=== PATIENT | female | born 1955 | race Caucasian/White ===

== ENCOUNTER 2022-04-30 21:10 | Inpatient (IN) | payer MEDICARE ==
[~2022-04-30] VITALS: Ht 172.7 cm; Wt 84.1 kg
[~2022-04-30 21:10] MED LIST: NO HOME MEDICATIONS; PHENERGAN 25 TA25 MG PO
[2022-04-30 22:48] LABS: BASO % 0.2 % (0.0-2.0); EOS % 0.2 % (0.0-4.0); GRAN # 10.8 K/mm3 (1.4-6.5); GRAN % 85.7 % (42.2-75.2); HEMATOCRIT 42.5 % (37.0-47.0); HEMOGLOBIN 14.2 g/dl (12.5-16.0); LYMPH # 1.2 K/mm3 (1.2-3.4); LYMPH % 9.6 % (20.0-51.0); MEAN CELL VOLUME 91 fl (80.0-100.0); MEAN CORPUSCULAR HEMOGLOBIN 30 pg (27-31); MEAN CORPUSCULAR HGB CONC 33 g/dl (33.0-37.0); MEAN PLATELET VOLUME 10.8 fl (7.4-10.4); MONO # 0.5 K/mm3 (0.1-0.6); PLATELET COUNT 248 K/mm3 (130-400); RED BLOOD COUNT 4.67 M/mm3 (4.10-5.30); REDCELL DISTRIBUTION WIDTH-CV 13.2 % (11.5-14.5)
[2022-04-30 22:59] LABS: INR 1.1 (0.8-3.0); PROTHROMBIN TIME 12.8 SECONDS (9.7-12.8)
[2022-04-30 23:02] LABS: PARTIAL THROMBOPLASTIN TIME 34.1 SECONDS (26.0-37.0)
[2022-04-30 23:03] LABS: ALANINE AMINOTRANSFERASE 27 U/L (0-55); ALBUMIN 3.8 gm/dL (3.4-4.8); ALKALINE PHOSPHATASE 165 U/L (40-150); ANION GAP 9 mmol/L (7-16); AST,SGOT 44 U/L (5-34); BILIRUBIN,TOTAL 0.4 mg/dL (0.2-1.2); BLOOD UREA NITROGEN 13 mg/dL (10-20); CALCIUM 9.4 mg/dL (8.4-10.2); CARBON DIOXIDE 27 mmol/L (23-31); CHLORIDE 102 mmol/L (98-107); CREATININE, serum 0.71 mg/dL (0.57-1.11); GLUCOSE 126 mg/dL (70-99); LIPASE 13 U/L (8-78); POTASSIUM 3.8 mmol/L (3.5-4.5); SODIUM 138 mmol/L (136-145)
[2022-04-30 23:04] LABS: ALCOHOL(ethanol),MEDICAL < 10 mg/dL (0-10)
[2022-04-30 23:52] LABS: COLLECTION METHOD CATHETER
[2022-04-30 23:59] LABS: URINE APPEARANCE Clear (CLEAR/HAZY); URINE BLOOD Negative (NEGATIVE); URINE COLOR Yellow (YELLOW); URINE GLUCOSE Negative (NEGATIVE); URINE KETONE TRACE (NEGATIVE); URINE NITRATE Negative (NEGATIVE); URINE PROTEIN(semi-quant) Negative (NEGATIVE); URINE UROBILINOGEN 0.2 E.U/dL (0.2-1.0)
[2022-05-01] VITALS (10 sets, daily range): BP systolic 109–170; BP diastolic 46–83; PULSE 80–88; TEMP 97.7–977
[2022-05-01 00:05] LABS: SQUAMOUS EPITHELIAL None Seen /hpf (0-10); URINE BACTERIA None Seen /hpf (NONE SEEN); URINE RBC 0-2 /hpf (0-2); URINE WBC 0-2 /hpf (0-2)
[2022-05-01 00:45] LABS: TRICYCLIC ANTIDEPRESS URINE NEGATIVE
--- NOTE | 2022-05-01 03:47 | NUR ---
RECEIVED REPORT FROM Michael RN, CHRIST. WAITING FOR PATIENT ARRIVAL TO ROOM FROM Michael
--- NOTE | 2022-05-01 04:29 | NUR ---
PATENT ARRIVED TO ROOM, PER E.D. CART WITH PCT TRANSPORTING PATIENT, PATIENT TRANSFERED TO WITH TRANSFER BOARD WITH PATIENT REPORTING PAIN WITH MOVEMENT. REPORTS UNABLE TO AFFORD MEDS DUE TO PAYING RENT THERE CLAIMS TAKES NO HOME MEDS ON A REGULAR BASIS. MICHAELS TO DD, DRAINING CLEAR YELLOW URINE. OBSERVED RLE SHORTENED AND EXTERNALLY ROTATED. ON ROOM AIR
--- NOTE | 2022-05-01 04:32 | NUR ---
REPORTS "DOWN TO SMOKING 2 CIGARS PER DAY DOWN FROM 2 PPD".
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
[2022-05-01 07:10] LABS: BASO % 0.3 % (0.0-2.0); EOS % 0.1 % (0.0-4.0); GRAN # 9.4 K/mm3 (1.4-6.5); GRAN % 80.7 % (42.2-75.2); HEMATOCRIT 41.5 % (37.0-47.0); HEMOGLOBIN 13.6 g/dl (12.5-16.0); LYMPH # 1.4 K/mm3 (1.2-3.4); LYMPH % 12.2 % (20.0-51.0); MEAN CELL VOLUME 92 fl (80.0-100.0); MEAN CORPUSCULAR HEMOGLOBIN 30 pg (27-31); MEAN CORPUSCULAR HGB CONC 33 g/dl (33.0-37.0); MEAN PLATELET VOLUME 12.1 fl (7.4-10.4); MONO # 0.7 K/mm3 (0.1-0.6); MONO % 6.4 % (1.7-9.3); PLATELET COUNT 256 K/mm3 (130-400); RED BLOOD COUNT 4.49 M/mm3 (4.10-5.30)
--- NOTE | 2022-05-01 07:11 | NUR ---
CHANGE OF SHIFT REPORT GIVEN TO DAY SHIFT RNWENDY
[2022-05-01 07:33] LABS: CALCIUM 9.1 mg/dL (8.4-10.2); CREATININE, serum 0.63 mg/dL (0.57-1.11); POTASSIUM 4.1 mmol/L (3.5-4.5)
--- NOTE | 2022-05-01 10:34 | NUR ---
Initial visit; Patient thanked Laura for looking in on her. She states God doesn't give us more than we can handle and she will be ok. Supervisor Nurse will keep Nicky in her prayers.
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
[2022-05-02] VITALS: BP 135/55; PULSE 75; TEMP 98.2
[2022-05-02 04:14] VITALS: BP 134/72; PULSE 88; TEMP 98.5
[2022-05-02 07:00] LABS: BASO % 0.2 % (0.0-2.0); GRAN # 10.2 K/mm3 (1.4-6.5); GRAN % 83.8 % (42.2-75.2); HEMOGLOBIN 12.4 g/dl (12.5-16.0); LYMPH # 1.2 K/mm3 (1.2-3.4); LYMPH % 9.6 % (20.0-51.0); MEAN CELL VOLUME 90 fl (80.0-100.0); MEAN CORPUSCULAR HEMOGLOBIN 30 pg (27-31); MEAN CORPUSCULAR HGB CONC 34 g/dl (33.0-37.0); MEAN PLATELET VOLUME 11.7 fl (7.4-10.4); MONO # 0.7 K/mm3 (0.1-0.6); PLATELET COUNT 251 K/mm3 (130-400); RED BLOOD COUNT 4.09 M/mm3 (4.10-5.30); REDCELL DISTRIBUTION WIDTH-CV 12.8 % (11.5-14.5)
[2022-05-02 07:01] LABS: HEMATOCRIT 36.6 % (37.0-47.0)
[2022-05-02 07:06] LABS: BILIRUBIN,TOTAL 0.5 mg/dL (0.2-1.2); CALCIUM 8.9 mg/dL (8.4-10.2); CREATININE, serum 0.64 mg/dL (0.57-1.11); MAGNESIUM 1.9 mg/dL (1.6-2.6); POTASSIUM 4.3 mmol/L (3.5-4.5); TOTAL PROTEIN 6.6 gm/dL (6.2-8.1)
[2022-05-02 09:00] VITALS: BP 136/90; PULSE 84; TEMP 98.6
--- NOTE | 2022-05-02 09:09 | NUR ---
Message received from Officer Nolting with the [employer] late last night. Message returned but unfortunatley, officer is not back on duty until Thursday. Supervising officer will contact me.
[2022-05-02 11:00] VITALS: BP 139/80; PULSE 82; TEMP 98.2
[2022-05-02 15:09] VITALS: BP 117/54; PULSE 84; TEMP 98.7
--- NOTE | 2022-05-02 15:55 | NUR ---
PATIENT ALERT AND ORIENTED X4. VSS. PATIENT HERE FOR RIGHT HIP FRACTURE. MICHAELS TO DD WITH ROBBIE OUTPUT. PATIENT REPORTS PAIN 7/10, REQUESTS PAIN MEDICATION. PATIENT ON ROOM AIR. IV TO RIGHT HAND INT. IV TO RIGHT AC INT. PATIENT RESTING IN BED WITH CALL LIGHT NEAR.
--- NOTE | 2022-05-02 16:28 | NUR ---
PATIENT'S FAMILY ATTEMPTED TO CONTACT PATIENT. FAMILY INFORMED OF CONFIDENTIALITY. PATIENT GIVEN NUMBER THAT FAMILY LEFT.
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
[2022-05-02 20:23] VITALS: BP 122/59; PULSE 88; TEMP 99.5
[2022-05-03 00:21] VITALS: BP 110/56; PULSE 75; TEMP 98.2
[2022-05-03 07:22] LABS: BASO % 0.3 % (0.0-2.0); EOS # 0.1 K/mm3 (0.0-0.7); EOS % 0.5 % (0.0-4.0); GRAN # 6.2 K/mm3 (1.4-6.5); GRAN % 60.9 % (42.2-75.2); LYMPH # 2.8 K/mm3 (1.2-3.4); LYMPH % 27.1 % (20.0-51.0); MEAN CELL VOLUME 91 fl (80.0-100.0); MEAN CORPUSCULAR HEMOGLOBIN 30 pg (27-31); MEAN CORPUSCULAR HGB CONC 34 g/dl (33.0-37.0); MEAN PLATELET VOLUME 11.9 fl (7.4-10.4); MONO # 1.1 K/mm3 (0.1-0.6); MONO % 10.8 % (1.7-9.3); PLATELET COUNT 244 K/mm3 (130-400); RED BLOOD COUNT 3.95 M/mm3 (4.10-5.30); REDCELL DISTRIBUTION WIDTH-CV 13.2 % (11.5-14.5)
[2022-05-03 07:29] LABS: HEMATOCRIT 35.8 % (37.0-47.0)
[2022-05-03 07:42] VITALS: BP 129/57; PULSE 76; TEMP 98
[2022-05-03 07:48] LABS: BILIRUBIN,TOTAL 0.6 mg/dL (0.2-1.2); CALCIUM 8.8 mg/dL (8.4-10.2); CREATININE, serum 0.63 mg/dL (0.57-1.11); MAGNESIUM 1.8 mg/dL (1.6-2.6); POTASSIUM 3.7 mmol/L (3.5-4.5); TOTAL PROTEIN 6.7 gm/dL (6.2-8.1)
[2022-05-03 12:00] VITALS: BP 119/61; PULSE 81; TEMP 98.4
--- NOTE | 2022-05-03 13:59 | NUR ---
Hot Header Operator rounds: Hot Header Operator visit attempted. Patient declined stating she was in too much pain. Patient would like Hot Header Operator to make another attempt tomorrow.
--- NOTE | 2022-05-03 14:27 | NUR ---
PATIENT ALERT AND ORIENTED X4. VSS. PATIENT HERE FOR RIGHT HIP FRACTURE. PATIENT REPORTS PAIN 6/10, REQUESTS PAIN MEDICATION. SURGICAL SITES X3 TO RIGHT HIP, CDI WITH BULKY DRESSING COVERING. ICE TO RIGHT HIP. PATIENT AMBULATED TO [facility]. PATIENT RESTING IN BED WITH CALL LIGHT NEAR.
[2022-05-03 16:00] VITALS: BP 133/71; PULSE 88; TEMP 98.5
[2022-05-03 19:54] VITALS: BP 134/76; PULSE 94; TEMP 98.3
--- NOTE | 2022-05-03 20:34 | NUR ---
PT A&OX4 RESTING IN BED. MEDS GIVEN AND ASSESSMENT COMPLETE. RT HIP INCISION CDI. VSS AND TELE IN PLACE. RH AND RAC INT PATENT. NO NEEDS AT THIS TIME. CALL LIGHT WITHIN REACH.
[2022-05-03 23:19] VITALS: BP 124/39; PULSE 90; TEMP 97.8
[2022-05-04 03:04] VITALS: BP 140/61; PULSE 83; TEMP 97.8
[2022-05-04 07:56] VITALS: BP 129/79; PULSE 79; TEMP 98.5
[2022-05-04 08:46] LABS: BILIRUBIN,TOTAL 0.8 mg/dL (0.2-1.2); CALCIUM 8.8 mg/dL (8.4-10.2); CREATININE, serum 0.64 mg/dL (0.57-1.11); MAGNESIUM 1.8 mg/dL (1.6-2.6); POTASSIUM 3.9 mmol/L (3.5-4.5); TOTAL PROTEIN 6.9 gm/dL (6.2-8.1)
[2022-05-04 09:10] LABS: BASO % 0.4 % (0.0-2.0); EOS % 0.4 % (0.0-4.0); GRAN % 65.9 % (42.2-75.2); LYMPH # 2.5 K/mm3 (1.2-3.4); LYMPH % 23.8 % (20.0-51.0); MEAN CELL VOLUME 91 fl (80.0-100.0); MEAN CORPUSCULAR HEMOGLOBIN 30 pg (27-31); MEAN CORPUSCULAR HGB CONC 34 g/dl (33.0-37.0); MONO % 9.1 % (1.7-9.3); PLATELET COUNT 288 K/mm3 (130-400); RED BLOOD COUNT 3.95 M/mm3 (4.10-5.30); REDCELL DISTRIBUTION WIDTH-CV 13.2 % (11.5-14.5)
[2022-05-04 09:12] LABS: HEMATOCRIT 35.8 % (37.0-47.0)
[2022-05-04] MEDS ORDERED: ASPI325T6 PO (10:53)
[2022-05-04] MEDS ORDERED: CALCIUM 600600 MG PO (10:54)
[2022-05-04] MEDS ORDERED: VITAMIN C500 MG PO (10:54)
[2022-05-04] MEDS ORDERED: TYLENOL 500MG500 MG PO (10:54)
[2022-05-04] MEDS ORDERED: ROXICODONE 55 MG/TAB PO (10:54)
[2022-05-04 12:00] VITALS: PULSE 74; TEMP 98.1
--- NOTE | 2022-05-04 12:26 | NUR ---
SW informed that patient may go to [facility] on this day. SW checked with [facility] staff and was informed that patient would not be going to [facility] on this day. Potentially the following. SW will continue to follow.
--- NOTE | 2022-05-04 12:57 | NUR ---
Welding Production Supervisor rounds: Welding Production Supervisor visit attempted. Patient stated that she was in too much pain and too "woozy" for a visit.
--- NOTE | 2022-05-04 13:27 | NUR ---
PATIENT ALERT AND ORIENTED X4. VSS. PATIENT HERE FOR RIGHT HIP FRACTURE. SURGICAL SITES X3 CDI. DRESSING REMOVED PER ORDERS. PATIENT TO BSC, REFUSES TO AMBULATE TO BATHROOM WITH WALKER. PATIENT CLAIMS IS TOO PAINFUL TO WALK. PATIENT EDUCATED ON IMPORTANCE OF THERAPY AND AMBULATION POST SURGERY. PATIENT REPORTS PAIN 9/10, REQUESTS PAIN MEDICATION. PATIENT RESTING IN BED WITH CALL LIGHT NEAR.
[2022-05-04 16:00] VITALS: BP 125/79; PULSE 95; TEMP 98
[2022-05-04 19:33] VITALS: BP 129/60; PULSE 86; TEMP 98.4
[2022-05-04 23:31] VITALS: BP 122/64; PULSE 83; TEMP 98.5
[2022-05-05 03:29] VITALS: BP 133/61; PULSE 87; TEMP 97.4
[2022-05-05 08:00] VITALS: BP 128/63; PULSE 82; TEMP 97.6
--- NOTE | 2022-05-05 08:00 | NUR ---
PATIENT IS DROWSY THIS AM BUT ORIENTED. VSS. REPORTS PAIN OF 4-5 ON PAIN SCALE IN RLE AND IS REQUESTING SOMETHING FOR PAIN BEFORE AM THERAPY. GAVE PRN OXYCODONE WITH AM MEDS, SEE MAR. NO C/O N/V. RIGHT HAND IV TO INT. RIGHT HIP SITES X3 ARE WELL APPROXIMATED AND ALEXANDRE. TEDS & SCD'S TO BLE. POSITIVE PEDAL PULSES TO BLE. HEAD TO TOE ASSESSMENT COMPLETE. DNR. CALL LIGHT IN REACH. PATIENT WANTING TO GO BACK TO SLEEP TILL PT/OT COME GET HER. LIGHTS TURNED DOWN.
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
[2022-05-05 12:13] VITALS: BP 134/63; PULSE 89; TEMP 97.2
--- NOTE | 2022-05-05 12:30 | NUR ---
PATIENT DISCHARGING TO [facility] WITH [facility] . GAVE INFO PACKET TO ENERGY PROJECT MANAGER. CALLED REPORT TO NURSE AT FACILITY. IV DC'D AND COVERED WITH GAUZE [employer] NICOLE. PATIENT IS DRESSED, PACKED AND DISCHARGED.
--- NOTE | 2022-05-05 12:46 | NUR ---
Follow-up visit; Patient requesting to see Steamfitter again today. had Nicky on her list of patients to follow-up visit. Steamfitter listened to Nicky's troubles and her happy stories of her four-year old Grand-daughter. Patient doing well and ready to go to physical therapy. wished her well and God's blessings.
== END 2022-05-05 12:30 | DRG 481 ==
LOC: COL.ER 21:10 → SURG 05-01 02:01
PROVIDERS: Emergency Medicine; Hospitalist; Nurse Practitioner Family; Orthopaedic Surgery; ADMIT Internal Medicine
PROC: 0QS606Z Reposition Right Upper Femur with Intramedullary Internal Fixation Device, Open Approach (ICD-10-PCS; principal; 2022-05-01 15:00)
DX: S72.141A Displaced intertrochanteric fracture of right femur, initial encounter for closed fracture (principal); R65.10 Systemic inflammatory response syndrome (SIRS) of non-infectious origin without acute organ dysfunction; I25.10 Atherosclerotic heart disease of native coronary artery without angina pectoris; I10 Essential (primary) hypertension; E78.00 Pure hypercholesterolemia, unspecified; F17.210 Nicotine dependence, cigarettes, uncomplicated; B19.20 Unspecified viral hepatitis C without hepatic coma; G62.9 Polyneuropathy, unspecified; Z66 Do not resuscitate; F32.A Depression, unspecified; F41.9 Anxiety disorder, unspecified; M19.90 Unspecified osteoarthritis, unspecified site; G47.33 Obstructive sleep apnea (adult) (pediatric); E78.5 Hyperlipidemia, unspecified; Y01.XXXA Assault by pushing from high place, initial encounter; Y93.89 Activity, other specified; I25.2 Old myocardial infarction; Y92.89 Other specified places as the place of occurrence of the external cause; Z86.718 Personal history of other venous thrombosis and embolism; Z88.0 Allergy status to penicillin; Z88.8 Allergy status to other drugs, medicaments and biological substances; Z91.012 Allergy to eggs; Z91.040 Latex allergy status
CPT/HCPCS: A4314; A9284; C1713; J0690; J1100; J1170; J2250; J2270; J2370; J2704; J2795; J3010; Q9967